=== PATIENT | female | born 1970 | race African-American/Black ===

== ENCOUNTER 2017-09-29 10:24 | Emergency (ER) | payer BC, MEDICAID ==
[~2017-09-29] VITALS: Ht 170.2 cm; Wt 111.3 kg
[2017-09-29 10:31] VITALS: BP 135/88
[2017-09-29] MEDS ORDERED: DICL50TA4 PO (11:11)
[2017-09-29] MEDS ORDERED: MELO15TA24 PO (11:11)
[2017-09-29] MEDS ORDERED: METF500T5 PO (11:11)
[2017-09-29] MEDS ORDERED: MONT10TA9 PO (11:11)
[2017-09-29] MEDS ORDERED: KETOROLAC 30 MG/1 ML ONE (11:21)
[2017-09-29] MEDS ORDERED: KETOROLAC 30 MG/1 ML IM ONE (11:30)
[2017-09-29 11:34] LABS: BASOPHILS # (AUTO) 0.02 x10^3/uL (0-0.1); BASOPHILS % (AUTO) 0 % (0-1); EOSINOPHILS # (AUTO) 0.03 x10^3/uL (0-0.4); EOSINOPHILS % (AUTO) 0 % (1-7); LYMPHOCYTES # (AUTO) 2.82 x10^3/uL (1-3.4); LYMPHOCYTES % (AUTO) 37 % (22-44); MD NO; MEAN CORPUSCULAR HEMOGLOBIN 30.2 pg (27.0-34.8); MEAN CORPUSCULAR VOLUME 88.8 fL (80-100); MEAN PLATELET VOLUME 8.7 fL (7.4-10.4); MONOCYTES # (AUTO) 0.23 x10^3/uL (0.2-0.8); MONOCYTES % (AUTO) 3 % (2-9); NEUTROPHILS # (AUTO) 4.57 x10^3/uL (1.8-6.8); NEUTROPHILS % (AUTO) 60 % (42-75); PLATELET COUNT 336 x10^3/uL (130-400); RED BLOOD COUNT 4.81 x10^6/uL (3.82-5.3)
[2017-09-29 11:43] LABS: ALBUMIN 3.4 g/dL (3.4-5.0); ANION GAP 9 mmol/L (5-15); CALCIUM 8.8 mg/dL (8.5-10.1); CHLORIDE 107 mmol/L (98-107)
== END 2017-09-29 12:38 | disposition home or self-care (01) ==
LOC: ED 12:06
DX: M13.172 Monoarthritis, not elsewhere classified, left ankle and foot (principal); M10.9 Gout, unspecified; I10 Essential (primary) hypertension; E78.00 Pure hypercholesterolemia, unspecified; E11.9 Type 2 diabetes mellitus without complications; M06.9 Rheumatoid arthritis, unspecified; F17.200 Nicotine dependence, unspecified, uncomplicated
CPT/HCPCS: 36415; 73610; 80048; 82040; 84550; 85025; 96372; 99285; J1885

== ENCOUNTER 2019-01-21 15:40 | Emergency (ER) | payer MEDICAID ==
[~2019-01-21] VITALS: Ht 167.6 cm; Wt 110.0 kg
[~2019-01-21 15:40] MED LIST: DICL50TA4 PO; MELO15TA24 PO; METF500T17 PO; MONT10TA9 PO
[2019-01-21] MEDS ORDERED: HYDROcodone/APAP 5/325 TABLET ONE (16:11)
[2019-01-21 16:14] VITALS: BP 150/101
--- NOTE | 2019-01-21 16:28 | NUR ---
Discharge instructions discussed with patient including when to return to emergency department, verbalizes understanding. Prescriptions provided with instruction for use. Taxi voucher provided to pharmacy for prescription and home.
[2019-01-21] MEDS ORDERED: HYDROcodone/APAP 5/325 TABLET PO ONE (16:30)
== END 2019-01-21 16:30 | disposition home or self-care (01) ==
LOC: ED 16:15
DX: K02.9 Dental caries, unspecified (principal); K08.89 Other specified disorders of teeth and supporting structures; F17.200 Nicotine dependence, unspecified, uncomplicated; E11.9 Type 2 diabetes mellitus without complications; E78.00 Pure hypercholesterolemia, unspecified; I10 Essential (primary) hypertension; M06.9 Rheumatoid arthritis, unspecified
CPT/HCPCS: 99283